=== PATIENT | female | born 1980 | race African-American/Black ===

== ENCOUNTER 2024-04-18 13:53 | Emergency (ER) | payer OTHER ==
[~2024-04-18] VITALS: Ht 170.2 cm; Wt 113.1 kg
[2024-04-18] MEDS ORDERED: HYDROCHLOROTH12.5 MG PO (14:09)
[2024-04-18] MEDS ORDERED: PENICILLIN G BENZATHINE 1.2 MUNITS/2 ML SYR IM ONE (16:00)
[2024-04-18 17:47] VITALS: BP 163/111
== END 2024-04-18 17:45 | disposition home or self-care (01) ==
LOC: ED 13:53
DX: J02.0 Streptococcal pharyngitis (principal); I10 Essential (primary) hypertension; Z88.8 Allergy status to other drugs, medicaments and biological substances
CPT/HCPCS: 87651; 96372; 99283; J0561; U0002